=== PATIENT | male | born 2000 | race Caucasian/White ===

== ENCOUNTER 2023-08-20 00:37 | Observation (INO) | payer OTHER ==
[~2023-08-20] VITALS: Ht 177.8 cm; Wt 97.7 kg
[2023-08-20] VITALS (7 sets, daily range): BP systolic 124–143; BP diastolic 51–81; PULSE 82–100; TEMP 97.6–98.1
[2023-08-20 01:04] LABS: BASO # 0.1 K/mm3 (0.0-0.2); BASO % 1.1 % (0.0-2.0); EOS # 0.8 K/mm3 (0.0-0.7); EOS % 10.8 % (0.0-4.0); GRAN # 3.9 K/mm3 (1.4-6.5); GRAN % 51.5 % (42.2-75.2); HEMATOCRIT 44.9 % (42.0-52.0); HEMOGLOBIN 15.4 g/dl (13.5-18.0); MEAN CELL VOLUME 85 fl (80.0-100.0); MEAN CORPUSCULAR HEMOGLOBIN 29 pg (27-31); MEAN CORPUSCULAR HGB CONC 34 g/dl (33.0-37.0); MEAN PLATELET VOLUME 10.4 fl (7.4-10.4); MONO # 0.7 K/mm3 (0.1-0.6); MONO % 9.3 % (1.7-9.3); PLATELET COUNT 208 K/mm3 (130-400); RED BLOOD COUNT 5.27 M/mm3 (4.20-5.60); REDCELL DISTRIBUTION WIDTH-CV 12.4 % (11.5-14.5)
--- NOTE | 2023-08-20 01:10 | NUR ---
CONT. TX, WILL ENTER POST VITALS IN 30 MINUTES
[2023-08-20 01:15] LABS: PROTHROMBIN TIME 11.3 SECONDS (9.7-12.8)
[2023-08-20 01:17] LABS: PARTIAL THROMBOPLASTIN TIME 39.5 SECONDS (26.0-37.0)
[2023-08-20 01:19] LABS: D-DIMER < 200.00 ng/mLDDu (200-230)
[2023-08-20 01:29] LABS: ALANINE AMINOTRANSFERASE 18 U/L (0-55); ALBUMIN 3.8 gm/dL (3.5-5.0); ALKALINE PHOSPHATASE 95 U/L (40-150); ANION GAP 12 mmol/L (7-16); AST,SGOT 18 U/L (5-34); BILIRUBIN,TOTAL 0.5 mg/dL (0.2-1.2); BLOOD UREA NITROGEN 15 mg/dL (9-21); CALCIUM 8.9 mg/dL (8.4-10.2); CARBON DIOXIDE 21 mmol/L (22-29); CHLORIDE 108 mmol/L (98-107); CREATININE, serum 0.93 mg/dL (0.72-1.25); GLUCOSE 91 mg/dL (70-99); SODIUM 141 mmol/L (136-145); TOTAL PROTEIN 7.7 gm/dL (6.2-8.1)
[2023-08-20 01:46] LABS: TROPONIN-I < 0.010 ng/mL (0.00-0.033)
[2023-08-20 02:43] LABS: ARTERIAL BLD GAS O2 SATURATION 95.4 % (92-100); ARTERIAL BLOOD GAS BASE EXCESS -0.8 (-2-2); ARTERIAL BLOOD GAS HCO3 22.5 meq/L (22-26); ARTERIAL BLOOD GAS PCO2 33.3 mmHg (35-45); ARTERIAL BLOOD GAS PO2 71.4 mmHg (80-100); ARTERIAL BLOOD GAS pH 7.45 (7.35-7.45)
--- NOTE | 2023-08-20 05:50 | NUR ---
POST VITALS PER CHART
[2023-08-20] MEDS ORDERED: PREDNISONE50 MG PO (07:27)
--- NOTE | 2023-08-20 10:48 | NUR ---
PATIENT ALERT AND ORIENTED X4. REPORTS SOB AND CHEST PAIN THAT FEELS DULL/ TIGHTNESS THATS CONSTANT AND COUGHING MAKES IT WORSE. RATING IT AT A 6/10.REPORTS HAVING A SORE THROAT. PATIENT ON 1L O2/NS.GIRLFRIEND AT BEDSIDE. CALL LIGHT WITHIN REACH. BED AT LOWEST POSITION.
--- NOTE | 2023-08-20 12:56 | NUR ---
Data: Patient accepted [employer] visit offered during [employer] rounds. 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 Patient's Jet is visiting. Assessment: Patient is concerned that his heart/breathing condition might adversely affect his career. Finished Cig[employer] Maker is [employer] and is therefore able to relate to the details of Patient's concerns without Patient having to go into deep detail. Plan of Care: Ministry of presence; supportive listening during career review; and reassurance. Finished Cigar Maker prayed for healing; for Patient's career; and for future life of couple in the .
[2023-08-21] VITALS (12 sets, daily range): BP systolic 127–149; BP diastolic 62–80; PULSE 72–82; TEMP 97.4–98.2
[2023-08-21 08:51] LABS: BASO % 0.2 % (0.0-2.0); EOS % 0.2 % (0.0-4.0); GRAN # 7.9 K/mm3 (1.4-6.5); GRAN % 73.1 % (42.2-75.2); HEMATOCRIT 39.7 % (42.0-52.0); HEMOGLOBIN 13.7 g/dl (13.5-18.0); LYMPH # 1.8 K/mm3 (1.2-3.4); LYMPH % 16.7 % (20.0-51.0); MEAN CELL VOLUME 86 fl (80.0-100.0); MEAN CORPUSCULAR HEMOGLOBIN 30 pg (27-31); MEAN CORPUSCULAR HGB CONC 35 g/dl (33.0-37.0); MEAN PLATELET VOLUME 10.9 fl (7.4-10.4); MONO % 9.4 % (1.7-9.3); PLATELET COUNT 216 K/mm3 (130-400); RED BLOOD COUNT 4.64 M/mm3 (4.20-5.60); REDCELL DISTRIBUTION WIDTH-CV 12.9 % (11.5-14.5)
[2023-08-21 09:07] LABS: CALCIUM 8.9 mg/dL (8.4-10.2); CREATININE, serum 0.79 mg/dL (0.72-1.25); POTASSIUM 3.9 mmol/L (3.5-4.5)
--- NOTE | 2023-08-21 12:16 | NUR ---
SW met with patient to complete intake. Patient reports that he lives alone in [place] and currently active duty PCP is [facility] for both care and pharmacy needs. Patient reports that he is independent with ADL's and currently no DME's. [employer] and [employer] inbound customer service representative is father Humble Salgado [phone] in [place]. Patient is excepting to D/C back home pending any further medical recommendations at this time.
[2023-08-22 00:15] VITALS: BP_SYST 148
[2023-08-22 03:55] VITALS: BP 133/78; PULSE 71; TEMP 97.9
[2023-08-22 04:15] VITALS: BP_SYST 133
[2023-08-22 06:36] LABS: BASO % 0.2 % (0.0-2.0); EOS % 0.3 % (0.0-4.0); GRAN # 6.7 K/mm3 (1.4-6.5); GRAN % 66.6 % (42.2-75.2); HEMATOCRIT 39.7 % (42.0-52.0); HEMOGLOBIN 13.5 g/dl (13.5-18.0); LYMPH # 2.5 K/mm3 (1.2-3.4); LYMPH % 24.6 % (20.0-51.0); MEAN CELL VOLUME 86 fl (80.0-100.0); MEAN CORPUSCULAR HEMOGLOBIN 29 pg (27-31); MEAN CORPUSCULAR HGB CONC 34 g/dl (33.0-37.0); MEAN PLATELET VOLUME 10.9 fl (7.4-10.4); MONO # 0.8 K/mm3 (0.1-0.6); MONO % 7.9 % (1.7-9.3); PLATELET COUNT 201 K/mm3 (130-400); RED BLOOD COUNT 4.61 M/mm3 (4.20-5.60); REDCELL DISTRIBUTION WIDTH-CV 12.9 % (11.5-14.5)
[2023-08-22 06:56] LABS: CALCIUM 8.7 mg/dL (8.4-10.2); CREATININE, serum 0.83 mg/dL (0.72-1.25); POTASSIUM 3.7 mmol/L (3.5-4.5)
[2023-08-22 07:17] VITALS: BP 129/82; PULSE 52; TEMP 97.6
[2023-08-22 07:50] VITALS: BP_SYST 129
--- NOTE | 2023-08-22 09:07 | NUR ---
Patient awake, alert and oriented. Denies pain, shortness of breath or nausea. Tolerated breakfast well, denies shortness of breath on exertion. Bed in lowest positon with call light within reach. Denies further needs at this time.
[2023-08-22] MEDS ORDERED: RT ADVAIR 228 DISKUS IH ×2 (09:46)
[2023-08-22] MEDS ORDERED: PROAIR HFA0.09 MG/AC IH ×2 (09:46)
[2023-08-22] MEDS ORDERED: RT SPIRIVA18 MCG IH ×2 (09:46)
[2023-08-22] MEDS ORDERED: PREDNISONE20 MG PO (09:47)
[2023-08-22] MEDS ORDERED: CLARISPRAY9.9 ML NS ×2 (09:48)
[2023-08-22] MEDS ORDERED: ZYRTEC 10MG10 MG PO (09:49)
[2023-08-22] MEDS ORDERED: Monodox PO (09:52)
[2023-08-22] MEDS ORDERED: DOXYCYCLINE HY100 MG PO (09:52)
--- NOTE | 2023-08-22 11:04 | NUR ---
Patient discharged to home, driven by significant other. Educated on discharge instructions and new medications, pt verbalized understanding. All belongings sent home with patient. Escorted out to car by nursing staff. IV removed prior to discharge, catheter tip intact.
== END 2023-08-22 11:00 | disposition home or self-care (01) ==
LOC: COL.ER 00:37 → MEDICAL 09:43
PROVIDERS: Emergency Medicine; ADMIT Internal Medicine
DX: B34.8 Other viral infections of unspecified site (principal); J96.01 Acute respiratory failure with hypoxia; R00.0 Tachycardia, unspecified; J30.2 Other seasonal allergic rhinitis; Z23 Encounter for immunization; R06.83 Snoring
CPT/HCPCS: A4614; G0008; G0378; J1100; J1650; J7030; Q9967

== ENCOUNTER → 2023-11-04 | Outpatient (CLI) | payer OTHER ==
[~2023-11-04] MED LIST: Albuterol 0.083% Neb Soln 2.5 MG/3 ML UD IH ONE; CLARISPRAY9.9 ML NS; DOXYCYCLINE HY100 MG PO; Methacholine Vial A (Clear Label Base-Cntrl) IH ONE; Methacholine Vial B (Red Label) 0.0625 MG/ML 3 ML VIAL.NEB IH ONE; Monodox PO; PREDNISONE20 MG PO; PREDNISONE50 MG PO; PROAIR HFA0.09 MG/AC IH; RT ADVAIR 228 DISKUS IH; RT SPIRIVA18 MCG IH; ZYRTEC 10MG10 MG PO
== END ==
LOC: COL.CARD 09:24
DX: R06.02 Shortness of breath (principal)
CPT/HCPCS: J7674